=== PATIENT | female | born 1960 | race Caucasian/White ===

== ENCOUNTER → 2016-03-17 | Outpatient (CLI) | payer BC ==
--- NOTE | 2016-03-17 11:29 | REP ---
MRI LUMBAR SPINE WITHOUT CONTRAST: HISTORY: Back and bilateral leg pain. COMPARISON: 08/05/2014. Decreased signal intensity on T2-weighted images is present in the L3-4 through L5-S1 intervertebral discs. The discs are decreased in height. These findings are consistent with disc degeneration. There is no disc bulge or herniation at the L1-2 and L2-3 levels. The nerves exit the neural foramina without compression. A diffuse disc bulge is present at the L3-4 level. There is minimal compression of the thecal sac. There is hypertrophy of the posterior articulating facets. There is posterolateral displacement of the right L3 nerve distal to the neural foramen. The left L3 nerve exit the neural foramen without compression. A diffuse disc bulge is present at the L4-5 level. There is minimal compression of the thecal sac. There is hypertrophy of the posterior articulating facets. The L4 nerves exit the neural foramina without compression. A diffuse disc bulge is present at the L5-S1 level. This abuts the thecal sac. There is hypertrophy of the posterior articulating facets. There are 9 mm of grade 2 spondylolisthesis of L5 on S1. This is associated with L5 pars defects. There is compression of the L5 nerves in the neural foramina. The conus medullaris is normal in appearance terminating at the level of the T12-L1 intervertebral disc. Increased signal intensity on T2-weighted images is present in the end plates of the L3 and 4 vertebral bodies. This represents degenerative change. IMPRESSION: 1. Diffuse disc bulges at the L3-4 and L4-5 levels with minimal thecal sac compression. 2. Diffuse disc bulge at the L5-S1 level. This abuts the thecal sac. There is grade 2 spondylolisthesis of L5 on S1 with associated L5 pars defects. There is compression of the L5 nerves in the neural foramina. There is no change compared to the previous study. Signed by Toby Villasenor MD 03/17/2016 11:33 A
== END ==
LOC: M RAD 09:32
PROVIDERS: ATTEND Physician Assistant
DX: M51.16 Intervertebral disc disorders with radiculopathy, lumbar region (principal); M51.17 Intervertebral disc disorders with radiculopathy, lumbosacral region; M43.17 Spondylolisthesis, lumbosacral region; M48.06 Spinal stenosis, lumbar region

== ENCOUNTER → 2018-10-02 | Outpatient (REF) | payer BC ==
[2018-10-06 14:17] LABS: HPV HYBRID CAPTURE II Negative (Negative)
== END ==
LOC: M LAB LCGH 12:08
PROVIDERS: ATTEND Nurse Practitioner Adult Health
DX: Z12.4 Encounter for screening for malignant neoplasm of cervix (principal)
CPT/HCPCS: 87624; G0123

== ENCOUNTER → 2018-11-16 | Outpatient (CLI) | payer BC | LOC: M WUC 15:15 | PROVIDERS: ATTEND Internal Medicine Rheumatology | DX: M79.10 Myalgia, unspecified site (principal) ==

== ENCOUNTER → 2022-08-04 | Outpatient (CLI) | payer BC ==
[~2022-08-04] MED LIST: ALBU8.5H; DEXA2TA PO; DEXA4TA; HYDR-3713; LISI5TAB11; MEMA10TA19 PO; MEMA1TAB3 PO; NYST-38 PO; TRIA1OI; VITA100T59 PO
== END ==
LOC: M ONCR 08:23
PROVIDERS: ATTEND General Practice
DX: C79.31 Secondary malignant neoplasm of brain (principal); C34.31 Malignant neoplasm of lower lobe, right bronchus or lung; C79.51 Secondary malignant neoplasm of bone; E78.5 Hyperlipidemia, unspecified; F32.A Depression, unspecified; Z71.2 Person consulting for explanation of examination or test findings; Z80.42 Family history of malignant neoplasm of prostate; Z87.891 Personal history of nicotine dependence; Z88.1 Allergy status to other antibiotic agents; Z88.2 Allergy status to sulfonamides; Z88.8 Allergy status to other drugs, medicaments and biological substances

== ENCOUNTER → 2022-08-20 | Outpatient (RCR) | payer BC | LOC: M ONCR 08-05 13:36 | PROVIDERS: ATTEND General Practice | DX: Z51.0 Encounter for antineoplastic radiation therapy (principal); C79.31 Secondary malignant neoplasm of brain ==

== ENCOUNTER 2022-09-12 11:35 | Observation (INO) | payer BC ==
[~2022-09-12] VITALS: Ht 157.5 cm; Wt 53.2 kg
[~2022-09-12 11:35] MED LIST changes: -ALBU8.5H; +ALBU8.5H INH; -LISI5TAB11; +LISI5TAB11 PO
[2022-09-12] MEDS ORDERED: OXYC-517 PO (11:55)
[2022-09-12] MEDS ORDERED: MORPHINE 2 MG/ML 1ML VIAL IV ONE (12:40)
[2022-09-12] MEDS ORDERED: ONDANSETRON 4MG 2ML VIAL IV ONE (12:40)
[2022-09-12 13:09] LABS: BASO % 0.2 % (0.0-1.0); EOS % 0.2 % (0.0-3.0); HEMATOCRIT 37.2 % (36.0-47.0); HEMOGLOBIN 12.7 g/dl (12.0-15.5); LYMPH # 1.4 10^3/uL (1.5-5.0); LYMPH % 9.5 % (24.0-44.0); MEAN CORPUSCULAR HEMOGLOBIN 30.7 pg (27.0-33.0); MEAN CORPUSCULAR HGB CONC 34.1 g/dl (32.0-36.5); MEAN CORPUSCULAR VOLUME 89.9 fl (80.0-96.0); MONO % 6.6 % (2.0-8.0); NEUTROPHILS # 11.9 10^3/uL (1.5-8.5); NEUTROPHILS % 81.5 % (36.0-66.0); PLATELET COUNT, AUTOMATED 300 10^3/uL (150-450); RED BLOOD COUNT 4.14 10^6/uL (4.00-5.40); WHITE BLOOD COUNT 14.6 10^3/uL (4.0-10.0)
[2022-09-12] MEDS ORDERED: MED REC IN PROGRESS XX SCH (13:20)
[2022-09-12 13:30] LABS: LIPASE 40 U/L (12-53)
[2022-09-12 13:32] LABS: ALBUMIN 2.8 G/DL (3.2-5.2); ALKALINE PHOSPHATASE 93 U/L (46-116); ALT/SGPT 29 U/L (7.0-40); AST/SGOT 22 U/L (<34); BILIRUBIN,DIRECT 0.1 MG/DL (<0.4); BILIRUBIN,TOTAL 0.5 MG/DL (0.3-1.2); BLOOD UREA NITROGEN 37 MG/DL (9-23); CALCIUM LEVEL 9.2 MG/DL (8.3-10.6); CARBON DIOXIDE LEVEL 23 MMOL/L (20-31); CHLORIDE LEVEL 99 MMOL/L (98-107); CREATININE FOR GFR 0.39 MG/DL (0.55-1.30); GLOMERULAR FILTRATION RATE > 60.0 (>45); GLUCOSE, FASTING 92 MG/DL (74-106); POTASSIUM SERUM 3.8 MMOL/L (3.5-5.1); SODIUM LEVEL 131 MMOL/L (136-145); TOTAL PROTEIN 6.1 G/DL (5.7-8.2)
[2022-09-12 13:44] LABS: RSV AMPLIFICATION NEGATIVE (NEGATIVE)
[2022-09-12] MEDS ORDERED: NS 1,000 ML IV ONE (13:50)
[2022-09-12] MEDS ORDERED: HYDROMORPHONE HCL 0.5 MG/ 0.5 ML SYRINGE IV ONE (13:55)
[2022-09-12] MEDS ORDERED: ASCO500T PO (13:57)
[2022-09-12] MEDS ORDERED: MEMA10TA19 PO (13:57)
[2022-09-12] MEDS ORDERED: PRED25TA PO (13:57)
[2022-09-12] MEDS ORDERED: HOME MED LIST COMPLETE! XX SCH (14:00)
[2022-09-12] MEDS: HYDROMORPHONE HCL 0.5 MG/ 0.5 ML SYRINGE IV PRN ×2 (15:58→20:41)
[2022-09-12] MEDS ORDERED: fentaNYL 100 MCG/2 ML INJECTION IV PRN ×2 (16:15→17:10)
[2022-09-12 16:42] VITALS: BP 140/80; TEMP 99
[2022-09-12] MEDS ORDERED: BISACODYL 10MG SUPP PR PRN (16:50)
[2022-09-12] MEDS ORDERED: FLEET ENEMA PR PRN (16:50)
[2022-09-12] MEDS ORDERED: HYOSCYAMINE SULFATE 0.125 MG SUBL TABLET PO PRN (16:50)
[2022-09-12] MEDS ORDERED: ACETAMINOPHEN 650MG SUPP PR PRN (16:50)
[2022-09-12] MEDS ORDERED: ATROPINE SULFATE 1% OPHTH SOLN 2ML BTL SL PRN (16:50)
[2022-09-12] MEDS ORDERED: ACETAMINOPHEN TAB 650MG DOSE (2X325MG) PO PRN (16:50)
[2022-09-12] MEDS: MORPHINE 10MG/0.5ML ORAL CONCENTRATE SOLUTION U/D SL PRN ×2 (18:14→21:06)
[2022-09-12 18:56] VITALS: O2SAT 92
[2022-09-12] MEDS: ONDANSETRON 4MG 2ML VIAL IV PRN (21:09)
[2022-09-12] MEDS: LORazepam 1 MG TAB PO PRN (21:12)
[2022-09-12] MEDS ORDERED: HYDROmorphone HCL 2MG/ML 1ML VIAL IV PRN (21:15)
[2022-09-13] MEDS: HYDROMORPHONE HCL 0.5 MG/ 0.5 ML SYRINGE IV PRN ×4 (00:34→09:35)
[2022-09-13] MEDS: SCOPOLAMINE 1MG TRANSDERMAL PATCH TOP PRN (03:33)
[2022-09-13] MEDS: ONDANSETRON 4MG 2ML VIAL IV PRN ×3 (09:35→21:41)
[2022-09-13] MEDS: HYDROmorphone HCL 2MG/ML 1ML VIAL IV PRN ×3 (12:29→20:57)
[2022-09-13] MEDS: LORazepam 1 MG TAB PO PRN (20:56)
[2022-09-14] MEDS: HYDROmorphone HCL 2MG/ML 1ML VIAL IV PRN ×7 (00:09→23:31)
[2022-09-14] MEDS: ONDANSETRON 4MG 2ML VIAL IV PRN ×2 (08:39→16:56)
[2022-09-14] MEDS: ONDANSETRON 4MG ORAL DISINTEGRATING TAB PO PRN ×2 (12:29→21:11)
[2022-09-14] MEDS: LORazepam 1 MG TAB PO PRN (21:11)
[2022-09-15] MEDS: HYDROmorphone HCL 2MG/ML 1ML VIAL IV PRN ×6 (02:33→22:32)
[2022-09-15] MEDS: ONDANSETRON 4MG 2ML VIAL IV PRN (06:09)
[2022-09-15] MEDS: LORazepam 1 MG TAB PO PRN ×2 (08:37→16:59)
[2022-09-16] MEDS: SCOPOLAMINE 1MG TRANSDERMAL PATCH TOP PRN (05:15)
[2022-09-16] MEDS: HYDROmorphone HCL 2MG/ML 1ML VIAL IV PRN ×5 (06:44→21:48)
[2022-09-16] MEDS: LORazepam 1 MG TAB PO PRN ×3 (09:48→16:52)
[2022-09-16] MEDS: SALIVA SUBSTITUTE(MOUTHKOTE) BTL MT PRN (14:21)
[2022-09-17] MEDS: HYDROmorphone HCL 2MG/ML 1ML VIAL IV PRN ×6 (01:31→19:33)
[2022-09-17] MEDS: SALIVA SUBSTITUTE(MOUTHKOTE) BTL MT PRN (07:48)
[2022-09-17] MEDS: MORPHINE 10MG/0.5ML ORAL CONCENTRATE SOLUTION U/D SL PRN (11:08)
[2022-09-17] MEDS: ONDANSETRON 4MG 2ML VIAL IV PRN ×2 (11:23→20:32)
[2022-09-17] MEDS: CEPACOL LOZENGE PO PRN ×2 (17:20→19:37)
[2022-09-18] MEDS: HYDROmorphone HCL 2MG/ML 1ML VIAL IV PRN ×8 (00:24→22:59)
[2022-09-18] MEDS: ONDANSETRON 4MG 2ML VIAL IV PRN ×3 (03:36→19:17)
[2022-09-19] MEDS: HYDROmorphone HCL 2MG/ML 1ML VIAL IV PRN ×9 (01:20→23:33)
[2022-09-19] MEDS: ONDANSETRON 4MG 2ML VIAL IV PRN (01:21)
[2022-09-19] MEDS: LORazepam 1 MG TAB PO PRN ×2 (04:06→21:03)
[2022-09-20] MEDS: HYDROmorphone HCL 2MG/ML 1ML VIAL IV PRN ×3 (01:49→07:43)
[2022-09-20] MEDS: LORazepam 1 MG TAB PO PRN ×2 (07:42→12:35)
[2022-09-20] MEDS: MORPHINE SULF IN 0.9% NACL 100 MG in IV 1 EA IV SCH ×2 (10:28)
[2022-09-20] MEDS: ONDANSETRON 4MG 2ML VIAL IV PRN (12:40)
[2022-09-21] MEDS: MORPHINE SULF IN 0.9% NACL 100 MG in IV 1 EA IV SCH ×2 (06:13)
[2022-09-22] MEDS: MORPHINE SULF IN 0.9% NACL 100 MG in IV 1 EA IV SCH ×6 (01:22→17:54)
[2022-09-22] MEDS: SCOPOLAMINE 1MG TRANSDERMAL PATCH TOP PRN (11:17)
== END 2022-09-22 20:27 | disposition expired ==
LOC: M ED 11:35 → M ED INP 16:12 → M MSPAV 20:53
PROVIDERS: ADMIT Internal Medicine; ATTEND Internal Medicine
DX: C34.90 Malignant neoplasm of unspecified part of unspecified bronchus or lung (principal); C79.51 Secondary malignant neoplasm of bone; C79.31 Secondary malignant neoplasm of brain; I10 Essential (primary) hypertension; R53.1 Weakness; M54.6 Pain in thoracic spine; M25.0 Hemarthrosis; M25.551 Pain in right hip; M25.552 Pain in left hip; J15.6 Pneumonia due to other Gram-negative bacteria; R05.9 Cough, unspecified; R51.9 Headache, unspecified; Z87.891 Personal history of nicotine dependence; E87.1 Hypo-osmolality and hyponatremia; J96.01 Acute respiratory failure with hypoxia; E46 Unspecified protein-calorie malnutrition; Z88.2 Allergy status to sulfonamides; Z88.1 Allergy status to other antibiotic agents; Z88.6 Allergy status to analgesic agent; Z66 Do not resuscitate; Z51.5 Encounter for palliative care
CPT/HCPCS: 80048; 80076; 83690; 85025; 87631; 93005; 96361; 96374; 96375; 96376; 99284; J1170; J2405; J3010